=== PATIENT | female | born 1965 | race Caucasian/White ===

== ENCOUNTER 2017-05-03 06:06 | Emergency (ER) | payer OTHER ==
[~2017-05-03] VITALS: Ht 172.7 cm; Wt 60.5 kg
[2017-05-03 06:08] VITALS: BP 151/87
[2017-05-03] MEDS ORDERED: PROG100C3 PO (06:09)
[2017-05-03] MEDS ORDERED: AMOX TR/POT CLAV 875 MG/125 MG TABLET PO ONE (07:00)
== END 2017-05-03 07:17 | disposition home or self-care (01) ==
LOC: EMS 06:06
DX: S61.532A Puncture wound without foreign body of left wrist, initial encounter (principal); L03.114 Cellulitis of left upper limb; W55.01XA Bitten by cat, initial encounter; Y93.89 Activity, other specified; Y92.89 Other specified places as the place of occurrence of the external cause; Y99.8 Other external cause status
CPT/HCPCS: 99283